=== PATIENT | female | born 1950 | race Caucasian/White ===

== ENCOUNTER → 2016-08-23 | Outpatient (CLI) | payer MEDICARE, BC ==
[~2016-08-23] MED LIST: ALEVE; COUMADIN; FERROUS SULFATE; FISH OIL300 MG PO; IBUPROFEN400 MG; LISINOPRIL-HCTZ1 T16 PO; LOPID600 MG PO; LOPRESSOR; METOPROLOL SUC200 MG PO; NORVASC10 MG PO; SYNTHROID112 MCG PO; VICODIN 5/500 T1 TAB; ZESTORETIC 10/11 TA1 PO; ZOCOR PO
--- NOTE | ~2016-08-23 | MY11 ---
[facility] A Service of [facility] RADIOLOGY TEXT RESULTS PATIENT: KOURTNEY SCHWARZ LOCATION: [facility] : 48 UNIT #: [id number] AGE: [address]: HERMAN LANDEROS SEX: F ORDER DR: [id number] [place], [place] [address] [id number] O MR#: [id number] Acc #: [id number] NAME: KOURTNEY SCHWARZ : 1950 SEX: F STUDY DATE/TIME: 08/23/2016 10:20 UNIT: [facility] ROOM: STUDY DESCRIPTION: MY Mammogram Screening Dig Giovani Attending Physician: Joe Harvey Ordering Physician: Joe Harvey Primary Care Physician: Tawny Coates M.D. MEDICAL IMAGING REPORT This report is preliminary unless electronic signature is present EXAM Bilateral Digital Screening Mammogram with CAD INDICATION Breast cancer screening. 66-year-old asymptomatic female who reports a maternal cousin with breast cancer. COMPARISON June 29, 2015 and May 19, 2015. FINDINGS There are scattered fibroglandular tissues. No suspicious findings are present. IMPRESSION No mammographic evidence of malignancy. Annual screening mammography and clinical breast exam are recommended. A result letter will be sent to the patient. Patients over the age of 40 are entered into a reminder system with target due date for the next mammogram. BIRADS: 1 Negative Dictated by... Naveed Luna M.D. THIS IS AN ELECTRONICALLY VERIFIED REPORT Naveed Luna M.D. at 08/27/2016 5:53 PM NEL/sara TD: 08/23/2016 16:10 [facility] A Service of [facility] RADIOLOGY TEXT RESULTS PATIENT: KOURTNEY SCHWARZ LOCATION: [facility] : 48 UNIT #: [id number] AGE: [address]: HERMAN LANDEROS SEX: F ORDER DR: JAZMINE #: [id number] MEDICAL IMAGING REPORT Page 1 of 1 COPY
== END | disposition home or self-care (01) ==
LOC: CWCC 09:51
DX: Z12.31 Encounter for screening mammogram for malignant neoplasm of breast (principal); Z80.3 Family history of malignant neoplasm of breast
CPT/HCPCS: G0202